=== PATIENT | female | born 1990 | race Two or more races ===

== ENCOUNTER 2018-08-14 20:23 | Emergency (ER) | payer SELFPAY ==
[~2018-08-14] VITALS: Ht 162.6 cm; Wt 68.0 kg
[2018-08-14 22:24] LABS: BILIRUBIN,URINE NEGATIVE (NEG); CLARITY,URINE CLEAR; COLOR,URINE YELLOW; NITRITE,URINE NEGATIVE (NEG); PROTEIN,URINE 30 mg/dL (NEG-TRACE); UROBILINOGEN,URINE 0.2 mg/dL (0.2 mg/dL)
[2018-08-14] MEDS ORDERED: KETOROLAC 15 MG/ML VIAL. IV ONE (22:30)
[2018-08-14 22:33] LABS: BACTERIA,URINE MANY /HPF (0-FEW); SQUAMOUS EPITHELIAL CELL,UR FEW /LPF; WBC,URINE TNTC /HPF (0-4)
[2018-08-14 22:53] LABS: BASO # 0.1 x10^3/uL (0.0-0.2); BASO % 1 % (0-3); EOS # 0.3 x10^3/uL (0.0-0.7); EOS % 3 % (0-3); HEMATOCRIT 36.8 % (36.0-47.0); HEMOGLOBIN 11.7 g/dL (12.0-15.5); LYMPH # 2.9 x10^3/uL (1.0-4.8); LYMPH % 27 % (24-48); MEAN CORPUSCULAR HEMOGLOBIN 21 pg (25-35); MEAN CORPUSCULAR HGB CONC 32 g/dL (31-37); MEAN CORPUSCULAR VOLUME 65 fL (79-100); MONO # 0.8 x10^3/uL (0.0-1.1); MONO % 7 % (0-9); NEUT # 6.7 x10^3uL (1.8-7.7); NEUT % 63 % (31-73); PLATELET COUNT 431 x10^3/uL (140-400); RED BLOOD COUNT 5.62 x10^6/uL (3.50-5.40); RED CELL DISTRIBUTION WIDTH 19.9 % (11.5-14.5); WHITE BLOOD COUNT 10.7 x10^3/uL (4.0-11.0)
[2018-08-14 23:03] LABS: CALCIUM 8.9 mg/dL (8.5-10.1); CREATININE 0.6 mg/dL (0.6-1.0); GFR 118.2; POTASSIUM 3.6 mmol/L (3.5-5.1)
[2018-08-14 23:09] LABS: ALBUMIN/GLOBULIN RATIO 0.8 (1.0-1.7); TOTAL BILIRUBIN 0.3 mg/dL (0.2-1.0); TOTAL PROTEIN 8.8 g/dL (6.4-8.2)
--- NOTE | 2018-08-14 23:10 | PHYS DOC ---
Past Medical History Past Medical History: No Pertinent History Past Surgical History: No Surgical History Alcohol Use: None Drug Use: None Adult General Chief Complaint Chief Complaint: FLANK PAIN HPI HPI Patient is a 27 yo female who presents with her partner with complaint of one week of back pain and urinary symptoms. She reports symptoms began wednesday with right sided back pain, then spread to the left side, and now radiate around her flanks into the suprapubic region. She reports that on Wednesday she had one episode of blood in her urine. She also reports burning with urination, but denies foul smelling or dark urine. She also reports having one week of constipation. She reports occasional clear vaginal discharge but denies foul smell. Patient reports she has 6 living children, all of whom have been vaginal births. She currently has a mirena in place. FDLMP was 2 weeks prior. She reports she has tried to manage the pain with tylenol, however it is not helpful. Patient denies recent international travel. She denies having a personal or family history of kidney stones. She reports she has never had any abdominal surgeries, and denied cholecystectomy when specifically asked, and is normally in good health. With the partner out of the room, the patient shared that she was treated for chlamydia 3-4 months ago, however she says her relationship is currently monogomous. She denies wearing condoms during sex. Also, when asked about vaginal symptoms, she confesses that occasionally she has pain and occasional white vaginal dc. Review of Systems Review of Systems Constitutional: Denies fever or chills [] Respiratory: Denies cough or shortness of breath [] Cardiovascular: Denies chest pain, Denies palpitations] GI: Admits abdominal pain. Admits constipation. Denies nausea, vomiting, or diarrhea. : Admits dysuria. Admits one episode of hematuria. Denies dark or foul smelling urine. Musculoskeletal: Admits back pain, R side worse than L Integument: Denies rash or skin lesions [] Neurologic: Denies headache, focal weakness or sensory changes [] All other systems were reviewed and found to be within normal limits, except as documented in this note. Current Medications Current Medications Current Medications Medications (Trade) Dose Ordered Sig/Jovon Start Time Stop Time Status Last Admin Dose Admin Azithromycin (Zithromax) 500 mg 1X ONCE 08/15/18 01:15 08/15/18 01:16 DC 08/15/18 02:02 500 MG Ceftriaxone Sodium (Rocephin) 1 gm 1X ONCE 08/14/18 23:15 08/14/18 23:16 DC 08/14/18 23:32 1 GM Ketorolac Tromethamine (Toradol 15mg Vial) 15 mg 1X ONCE 08/14/18 22:30 08/14/18 22:31 DC 08/14/18 22:51 15 MG Allergies Allergies Allergies Coded Allergies Type Severity Reaction Last Updated Verified No Known Drug Allergies 08/14/18 No Physical Exam Physical Exam Constitutional: Well developed, well nourished, diaphoretic HENT: Normocephalic, atraumatic, Cardiovascular:Heart rate regular rhythm, no murmur [] Lungs & Thorax: Bilateral breath sounds clear to auscultation [] Abdomen: Soft, moderately tender to palpation in all quadrants, including significant RUQ and suprapubic tenderness. No masses appreciated. No lesions appreciated. Belly button ring in place. BY MICHAELA MILD LEFT ADNEXAL TTP NOTED, WITH MODERATE VAGINAL D/C OS CLOSED Skin: Warm, dry, no erythema, no rash. [] Back: No tenderness, Zeferino's punch positive on R Extremities: No tenderness, no cyanosis, no clubbing, ROM intact, no edema. [] Neurologic: Alert and oriented X 3, normal motor function, normal sensory function, no focal deficits noted. [] Psychologic: Affect normal, judgement normal, mood normal. [] Current Patient Data Vital Signs Vital Signs Date Time Temp Pulse Resp B/P (MAP) Pulse Ox O2 Delivery O2 Flow Rate FiO2 08/15/18 01:29 62 137/76 (96) 98 Room Air 08/14/18 21:20 97.5 18 97.5 Lab Values Laboratory Tests Test 08/14/18 20:24 08/14/18 20:34 08/14/18 22:45 Urine Collection Type Unknown Urine Color Yellow Urine Clarity Clear Urine pH 6.0 Urine Specific [place] 1.015 Urine Protein 30 mg/dL (NEG-TRACE) Urine Glucose (UA) Negative mg/dL (NEG) Urine Ketones (Stick) Negative mg/dL (NEG) Urine Blood Small (NEG) Urine Nitrite Negative (NEG) Urine Bilirubin Negative (NEG) Urine Urobilinogen Dipstick 0.2 mg/dL (0.2 mg/dL) Urine Leukocyte Esterase Large (NEG) Urine RBC 11-20 /HPF (0-2) Urine WBC Tntc /HPF (0-4) Urine Squamous Epithelial Cells Few /LPF Urine Bacteria Many /HPF (0-FEW) POC Urine HCG, Qualitative Hcg negative (Negative) White Blood Count 10.7 x10^3/uL (4.0-11.0) Red Blood Count 5.62 x10^6/uL (3.50-5.40) H Hemoglobin 11.7 g/dL (12.0-15.5) L Hematocrit 36.8 % (36.0-47.0) Mean Corpuscular Volume 65 fL (79-100) L Mean Corpuscular Hemoglobin 21 pg (25-35) L Mean Corpuscular Hemoglobin Concent 32 g/dL (31-37) Red Cell Distribution Width 19.9 % (11.5-14.5) H Platelet Count 431 x10^3/uL (140-400) H Neutrophils (%) (Auto) 63 % (31-73) Lymphocytes (%) (Auto) 27 % (24-48) Monocytes (%) (Auto) 7 % (0-9) Eosinophils (%) (Auto) 3 % (0-3) Basophils (%) (Auto) 1 % (0-3) Neutrophils # (Auto) 6.7 x10^3uL (1.8-7.7) Lymphocytes # (Auto) 2.9 x10^3/uL (1.0-4.8) Monocytes # (Auto) 0.8 x10^3/uL (0.0-1.1) Eosinophils # (Auto) 0.3 x10^3/uL (0.0-0.7) Basophils # (Auto) 0.1 x10^3/uL (0.0-0.2) Platelet Estimate Increased (ADEQUATE) Hypochromasia Slight Microcytosis Mod Macrocytosis Slight Sodium Level 138 mmol/L (136-145) Potassium Level 3.6 mmol/L (3.5-5.1) Chloride Level 102 mmol/L (98-107) Carbon Dioxide Level 24 mmol/L (21-32) Anion Gap 12 (6-14) Blood Urea Nitrogen 17 mg/dL (7-20) Creatinine 0.6 mg/dL (0.6-1.0) Estimated GFR (Cockcroft-Gault) 118.2 BUN/Creatinine Ratio 28 (6-20) H Glucose Level 97 mg/dL (70-99) Calcium Level 8.9 mg/dL (8.5-10.1) Total Bilirubin 0.3 mg/dL (0.2-1.0) Aspartate Amino Transferase (AST) 62 U/L (15-37) H Alanine Aminotransferase (ALT) 123 U/L (14-59) H Alkaline Phosphatase 92 U/L (46-116) Total Protein 8.8 g/dL (6.4-8.2) H Albumin 4.0 g/dL (3.4-5.0) Albumin/Globulin Ratio 0.8 (1.0-1.7) L Lipase 111 U/L (73-393) Laboratory Tests 08/14/18 22:45 Laboratory Tests 08/14/18 22:45 Microbiology 08/15/18 Wet Prep - Final, Complete EKG EKG [] Radiology/Procedures Radiology/Procedures IMPRESSION: 1. Gallbladder not visualized. 2. Mild hepatomegaly with hepatic steatosis. Electronically signed by: Hayes Garcia DO (08/15/2018 12:51 AM) [facility]ENTERA[facility] ServicesSA[facility] [id number] DICTATED and SIGNED BY: HAYES GARCIA DO DATE: 08/15/1850 [] Impressions: IMPRESSION: Limited evaluation of solid abdominal and pelvic organs due to lack of IV contrast. Significant motion artifact is seen in the abdomen limiting optimal evaluation. 1. No bowel obstruction. No apparent renal stones. 2. Low-lying IUD in the endocervical canal with trace amount of emphysema in the upper vagina vault. Clinically correlate. Electronically signed by: Hayes Garcia DO (08/14/2018 11:37 PM) [facility]ENTERA[facility]SA[facility] [id number] Course & Med Decision Making Course & Med Decision Making Pertinent Labs and Imaging studies reviewed. 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 Dragon Disclaimer Dragon Disclaimer This electronic medical record was generated, in whole or in part, using a voice recognition dictation system. Departure Departure Impression: Primary Impression: Bacterial vaginosis Additional Impression: Urinary tract infection Disposition: HOME, SELF-CARE Condition: STABLE Referrals: NO PCP (PCP) Scripts Cephalexin (CEPHALEXIN) 500 Mg Tablet 1 TAB PO QID, #40 TAB Prov: GREGORY DOLL MD 08/15/18 Metronidazole (METRONIDAZOLE) 500 Mg Tablet 1 TAB PO BID, #20 TAB Prov: GREGORY DOLL MD 08/15/18 Doxycycline Hyclate (DOXYCYCLINE HYCLATE) 100 Mg Tablet 1 TAB PO BID, #28 TAB Prov: GREGORY DOLL MD 08/15/18 Problem Qualifiers GREGORY DOLL MD Aug 14, 2018 23:10
[2018-08-14] MEDS ORDERED: cefTRIAXone IV Push 1 GM VIAL. IVP ONE (23:15)
[2018-08-14 23:34] LABS: HYPOCHROMIA SLIGHT; MICROCYTOSIS MOD; PLT ESTIMATE INCREASED (ADEQUATE)
--- NOTE | 2018-08-14 23:40 | RAD ---
PQRS Compliance statement: One or more of the following individualized dose reduction techniques were utilized for this examination: 1. Automated exposure control. 2. Adjustment of the mA and/or kV according to patient size. 3. Use of iterative reconstruction technique. Indication:abd pain TECHNIQUE: CT abdomen and pelvis without IV contrast with multiplanar reformats. COMPARISON: None FINDINGS: Limited evaluation of solid abdominal and pelvic organs due to lack of IV contrast. Heart is normal in size. No pericardial or pleural effusion. Clear lung bases. Motion artifact is seen in the lower abdomen limiting optimal evaluation. Liver and spleen are normal in morphology. Status post cholecystectomy. Noncontrast appearance of the pancreas, adrenals within normal limits. No apparent renal stone or hydronephrosis. No enlarged retroperitoneal or pelvic adenopathy. No free pelvic fluid or ascites. No bowel obstruction. Appendix is not visualized. Anteverted uterus. IUD is in the endocervical canal. Urinary bladder demonstrates no radiopaque stone. No pneumoperitoneum. No suspicious bony lesion. IMPRESSION: Limited evaluation of solid abdominal and pelvic organs due to lack of IV contrast. Significant motion artifact is seen in the abdomen limiting optimal evaluation. 1. No bowel obstruction. No apparent renal stones. 2. Low-lying IUD in the endocervical canal with trace amount of emphysema in the upper vagina vault. Clinically correlate. Electronically signed by: Hayes Durant DO (08/14/2018 11:37 PM) [facility]
--- NOTE | 2018-08-15 00:54 | RAD ---
Indication:ELEVATED LFTS, EPIGASTRIC PAIN, PT STATES NO SURGERY??? TECHNIQUE: Grayscale, color Doppler and spectral waveform is of the abdomen obtained. COMPARISON:CT abdomen pelvis from the same day FINDINGS: Visualized pancreas is within normal limits. IVC within normal limits. Main portal vein is patent. Liver is mildly enlarged measuring 19 cm. CBD measures 4 mm in diameter and is within normal limits. Gallbladder not visualized. Right kidney measures 11.7 cm in length without hydronephrosis. Diffusely increased echogenicity of the liver. IMPRESSION: 1. Gallbladder not visualized. 2. Mild hepatomegaly with hepatic steatosis. Electronically signed by: Hayes Durant DO (08/15/2018 12:51 AM) [facility]
[2018-08-15] MEDS ORDERED: CEPH500T PO (01:05)
[2018-08-15] MEDS ORDERED: DOXY100T PO (01:05)
[2018-08-15] MEDS ORDERED: METR-34 PO (01:05)
[2018-08-15] MEDS ORDERED: AZITHROMYCIN 250 MG TABLET. PO ONE (01:15)
[2018-08-15 01:29] VITALS: BP 137/76
[2018-08-16 13:25] LABS: GC PROBE Negative (Negative)
== END 2018-08-15 02:02 | disposition home or self-care (01) ==
LOC: ER 20:23 → MERGE 20:23 → ER 08-15 02:02
DX: N39.0 Urinary tract infection, site not specified (principal); N76.0 Acute vaginitis; B96.89 Other specified bacterial agents as the cause of diseases classified elsewhere; K59.00 Constipation, unspecified; K76.0 Fatty (change of) liver, not elsewhere classified
CPT/HCPCS: 36415; 74176; 76705; 80053; 81001; 81025; 83690; 85025; 87086; 87491; 87591; 96374; 96375; 99284; J0696; J1885; Q0111; Q0144; 87186

== ENCOUNTER 2021-02-20 19:06 | Emergency (ER) | payer SELFPAY ==
[~2021-02-20] VITALS: Ht 152.4 cm; Wt 68.0 kg
[~2021-02-20 19:06] MED LIST: CEPH500T PO; DOXY100T PO; METR-34 PO
--- NOTE | 2021-02-20 19:15 | PHYS DOC ---
Past Medical History Past Medical History: No Pertinent History Past Surgical History: No Surgical History Smoking Status: Never Smoker Alcohol Use: None Drug Use: None General Adult HPI: HPI: Patient is a 30 year old female who is currently on no prescription medications presents with a chief complaint of chest pain. Patient states chest pain started Wednesday. Patient states pain comes and goes starts in the left chest with radiation down left arm. Patient states she has associated shortness of breath denies any nausea or vomiting. Patient also states she has associated dizziness. Patient's blood pressure noted to be greater than 200 systolic. EKG performed shows normal sinus rhythm. Review of Systems: Review of Systems: Constitutional: Denies fever or chills. [] Eyes: Denies change in visual acuity. [] HENT: Denies nasal congestion or sore throat. [] Respiratory: Denies cough or shortness of breath. [] Cardiovascular: Denies chest pain or edema. [] GI: Denies abdominal pain, nausea, vomiting, bloody stools or diarrhea. [] : Denies dysuria. [] Musculoskeletal: Denies back pain or joint pain. [] Integument: Denies rash. [] Neurologic: Denies headache, focal weakness or sensory changes. [] Endocrine: Denies polyuria or polydipsia. [] Lymphatic: Denies swollen glands. [] Psychiatric: Denies depression or anxiety. [] Heart Score: C/O Chest Pain: N/A HEART Score for Chest Pain: HEART Score for Chest Pain Response (Comments) Value History Slighlty/Non-Suspicious 0 ECG Normal 0 Age < 45 0 Risk Factors No Risk Factors 0 Troponin < Normal Limit 0 Total 0 Risk Factors: Risk Factors: DM, Current or recent (<one month) smoker, HTN, HLP, family history of CAD, obesity. Risk Scores: Score 0 - 3: 2.5% MACE over next 6 weeks - Discharge Home Score 4 - 6: 20.3% MACE over next 6 weeks - Admit for Clinical Observation Score 7 - 10: 72.7% MACE over next 6 weeks - Early Invasive Strategies Allergies: Allergies: Allergies Coded Allergies Type Severity Reaction Last Updated Verified No Known Drug Allergies 05/06/17 No Physical Exam: PE: Constitutional: Well developed, well nourished, no acute distress, non-toxic appearance. [] HENT: Normocephalic, atraumatic, bilateral external ears normal, oropharynx moist, no oral exudates, nose normal. [] Eyes: PERRLA, EOMI, conjunctiva normal, no discharge. [] Neck: Normal range of motion, no tenderness, supple, no stridor. [] Cardiovascular:Heart rate regular rhythm, no murmur [] Lungs & Thorax: Bilateral breath sounds clear to auscultation [] Abdomen: Bowel sounds normal, soft, no tenderness, no masses, no pulsatile masses. [] Skin: Warm, dry, no erythema, no rash. [] Back: No tenderness, no CVA tenderness. [] Extremities: No tenderness, no cyanosis, no clubbing, ROM intact, no edema. [] Neurologic: Alert and oriented X 3, normal motor function, normal sensory function, no focal deficits noted. [] Psychologic: Affect normal, judgement normal, mood normal. [] EKG: EKG: [] Performed at 1912 Rate 64 Normal sinus rhythm No ST elevation No ST depression No acute FL Radiology/Procedures: Radiology/Procedures: [] Impression: XR CHEST 1V INDICATION: chest pain COMPARISON STUDY: None. FINDINGS: Lungs: Normal lung volume. No pulmonary mass or consolidation. The tracheobronchial tree and hilar structures are normal. Pleura: No pleural effusion or pneumothorax. Heart and Mediastinum: The cardiomediastinal silhouette is normal. The great vessels of the thorax are normal. Bones and Soft Tissues: The bones and soft tissues are within normal limits. IMPRESSION: No acute cardiopulmonary process. Course & Med Decision Making: Course & Med Decision Making Pertinent Labs and Imaging studies reviewed. (See chart for details) [] Patient was evaluated for chief complaint. Work-up consisted of laboratory analysis radiologic imaging and EKG. Results reviewed and discussed with tiffanie tatum. Patient's initial blood pressure greater than 200 systolic. Labetalol 20 mg IV was ordered but upon reevaluation patient's blood pressure is was in the 160s systolic. Patient is EKG troponin and chest x-ray within normal limits. Patient with a heart score of 0. At this time I feel the patient is safe for discharge she will be discharged home with instruction to follow-up with her primary care physician. Jerson Disclaimer: Jerson Disclaimer: This electronic medical record was generated, in whole or in part, using a voice recognition dictation system. Departure Departure Impression: Primary Impression: Chest pain Disposition: HOME / SELF CARE / HOMELESS Condition: STABLE Referrals: NO PCP (PCP) Patient Instructions: Chest Pain (Nonspecific) MARGY HOWELL DO Feb 20, 2021 19:15
[2021-02-20] MEDS ORDERED: LABETALOL 20 MG/4 ML DISP.SYRIN. IVP ONE (19:45)
[2021-02-20 19:51] LABS: BASO # 0.1 x10^3/uL (0.0-0.2); BASO % 1 % (0-3); EOS # 0.2 x10^3/uL (0.0-0.7); EOS % 2 % (0-3); HEMOGLOBIN 13.2 g/dL (12.0-15.5); LYMPH # 1.6 x10^3/uL (1.0-4.8); LYMPH % 17 % (24-48); MEAN CORPUSCULAR HEMOGLOBIN 26 pg (25-35); MEAN CORPUSCULAR HGB CONC 34 g/dL (31-37); MEAN CORPUSCULAR VOLUME 76 fL (79-100); MONO # 0.6 x10^3/uL (0.0-1.1); MONO % 6 % (0-9); NEUT # 6.7 x10^3/uL (1.8-7.7); NEUT % 74 % (31-73); PLATELET COUNT 347 x10^3/uL (140-400); RED BLOOD COUNT 5.12 x10^6/uL (3.50-5.40); RED CELL DISTRIBUTION WIDTH 15.1 % (11.5-14.5); WHITE BLOOD COUNT 9.1 x10^3/uL (4.0-11.0)
[2021-02-20 19:59] LABS: CREATININE 0.9 mg/dL (0.6-1.0); GFR 72.6; POTASSIUM 3.8 mmol/L (3.5-5.1)
[2021-02-20 20:05] LABS: ALBUMIN/GLOBULIN RATIO 0.9 (1.0-1.7); TOTAL BILIRUBIN 0.3 mg/dL (0.2-1.0); TOTAL PROTEIN 8.4 g/dL (6.4-8.2)
--- NOTE | 2021-02-20 20:07 | RAD ---
XR CHEST 1V INDICATION: chest pain COMPARISON STUDY: None. FINDINGS: Lungs: Normal lung volume. No pulmonary mass or consolidation. The tracheobronchial tree and hilar st ructures are normal. Pleura: No pleural effusion or pneumothorax. Heart and Mediastinum: The cardiomediastinal silhouette is normal. The great vessels of the thorax ar e normal. Bones and Soft Tissues: The bones and soft tissues are within normal limits. IMPRESSION: No acute cardiopulmonary process. Electronically signed by: Walter Leblanc MD (02/20/2021 8:05 PM) [facility]PET[facility]
[2021-02-20 20:45] VITALS: BP 177/89
--- NOTE | 2021-02-21 06:51 | EKG ---
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
== END 2021-02-20 21:26 | disposition home or self-care (01) ==
LOC: ER 19:06
DX: R07.89 Other chest pain (principal); R06.02 Shortness of breath; R42 Dizziness and giddiness
CPT/HCPCS: 36415; 71045; 80053; 81025; 84484; 85025; 93005; 99285-25